=== PATIENT | female | born 1970 | race American Indian/Alaskan Native ===

== ENCOUNTER 2016-09-07 16:23 | Emergency (ER) | payer BC ==
[2016-09-07 16:40] VITALS: BP 144/107
[2016-09-07 16:54] LABS: Basophils % (Auto) 0.6 % (0.0-1.8); Eosinophils % (Auto) 0.7 % (0.0-4.3); Hematocrit 34.9 % (30.3-42.9); Hemoglobin 11.3 gm/dl (10.1-14.3); Mean Corpuscular HGB Conc 32 % (30-34); Mean Corpuscular Hemoglobin 28 pg (28-32); Mean Corpuscular Volume 88 fl (79-97); Platelet Count 235 K/mm3 (140-440); Red Blood Count 3.99 M/mm3 (3.65-5.03); Red Cell Distribution Width 15.2 % (13.2-15.2)
[2016-09-07 17:15] LABS: Anion Gap 16 mmol/L; BUN/Creatinine Ratio 12.85; Blood Urea Nitrogen 9 mg/dL (7-17); Calcium 8.9 mg/dL (8.4-10.2); Carbon Dioxide 28 mmol/L (22-30); Chloride 101.8 mmol/L (98-107); Glucose 112 mg/dL (65-100); Sodium 142 mmol/L (137-145)
--- NOTE | 2016-09-09 01:24 | ED Elopement Review ---
ED Pt Elopement review - Results review Lab results: Laboratory Tests 09/07/16 09/07/16 09/07/16 16:43 16:43 16:43 WBC 6.0 RBC 3.99 Hgb 11.3 Hct 34.9 MCV 88 MCH 28 MCHC 32 RDW 15.2 Plt Count 235 Lymph % (Auto) 28.8 Dixie % (Auto) 8.6 H Eos % (Auto) 0.7 Baso % (Auto) 0.6 Lymph # 1.7 Dixie # 0.5 Eos # 0.0 Baso # 0.0 Seg Neutrophils % 61.3 Seg Neutrophils # 3.6 Sodium 142 Potassium 4.0 Chloride 101.8 Carbon Dioxide 28 Anion Gap 16 BUN 9 Creatinine 0.7 Estimated GFR > 60 BUN/Creatinine Ratio 12.85 Glucose 112 H Calcium 8.9 Troponin T < 0.010 HCG, Qual Negative - Call Back decision Pt Call Back Decision: Pt to F/U with PMD
== END 2016-09-07 16:43 | disposition left against medical advice (07) ==
LOC: ED 16:23
DX: R07.9 Chest pain, unspecified (principal); R06.02 Shortness of breath; Z53.21 Procedure and treatment not carried out due to patient leaving prior to being seen by health care provider
CPT/HCPCS: 36415; 80048; 84484; 84703; 85025; 93005; 93010